=== PATIENT | male | born 1960 | race Caucasian/White ===

== ENCOUNTER 2017-09-02 09:42 | Emergency (ER) | payer SELFPAY ==
[2017-09-02 09:54] VITALS: BMI 24.9
--- NOTE | 2017-09-02 10:20 | DR.GENAD ---
HPI - PCP Primary Care Physician: Deneen Junior - HPI Comment HPI Comment: SYMTOMS ALMOST GONE PROJECT ENG WANTED EVALUTION FOR CHEST PAIN. - Complaint/Symptoms Chief Complaint Doctors Comments: CHEST PAIN, SORENESS. NOTED SATURDAY FOR 8 HRS. RESOLVE WITH MILD SORENESS. HAVE GENERALIZE WEAKNESS WITH WEIGHT LOSS FOR 2 MONTHS. Chief Complaint:: Pt c/o generalized weakness for 2 months. Has lost 20 lb in last 2 weeks. Saturday night around 11pm until Saturday morning around 8am started to feel like "a horse kicked me in my chest." Still c/o general soreness in chest Self Treatment fo Chief Complaint: [place] Naproxen with no relief - Nurses notes reviewed Nurses Notes Review: Yes - Source History Provided: Patient - Mode of Arrival Mode of Arrival: Ambulatory - Timing Onset of Chief Complaint: 08/31/17 Came on: Gradually - Duration Duration: Constant Duration: Days - Severity Severity: Moderate PMH - PMH Past Medical History: Yes Past Medical History: Anxiety, Depression Past Medical History Comment: Rheumatoid arthritis Past Surgical History: Yes Surgical History: Tonsillectomy - Family History History of Family Medical Conditions: Yes Family Medical History: Cancer, Coronary Artery Disease, Hypertension - Social History Does patient currently use any type of tobacco product: No Have you used tobacco products in the last 12 months: No Type of Tobacco Use: None Does any household member use tobacco: No Alcohol Use: None Do you use any recreational Drugs:: No Lives With: Alone Lives Where: Home - infectious screening In the last 2 months have you had wt loss of >10#?: YES Have you had fever, night sweats or hemotysis?: No Have you traveled outside the country in the last 6 months?: No Isolation: Standard ROS - Review of Systems Constitutional: Weakness, Fatigue. negative: Chills, Fever Eyes: No Symptoms Reported. negative: Eye Pain, Discharge ENTM: No Symptoms Reported. negative: Ear Pain, Nose Discharge, Nose Congestion , Throat Pain Respiratoy: Short of Breath. negative: Productive Cough, Non-Productive Cough, Wheezing, Hemoptysis Cardiovascular: Chest Pain Gastrointestinal/Abdominal: No Symptoms Reported Genitourinary: No Symptoms Reported Neurological: No Symptoms Reported Musculoskeletal: Muscle Pain Integumentary: No Symptoms Reported Hematologic/Lymphatic: No Symptoms Reported Endocrine: No Symptoms Reported All Other Systems: Reviewed and Negative PE - Vital Signs Vitals: Temperature 97.6 F Pulse Rate [Apical] 54 Pulse Rate 67 Respiratory Rate 16 Blood Pressure [Left Arm] 139/72 Blood Pressure 139/80 O2 Sat by Pulse Oximetry 95 - General Limitations: No Limitations General Appearance: Alert - Head Head Exam: Normal Inspection - Eyes Eye exam: Normal Appearance - ENT ENT Exam: Normal External Ear Exam External Ear Exam: Normal External Inspection TM/Canal Exam: Bilateral Normal Nose Exam: Normal Nose Exam Mouth Exam: Normal Inspection Throat Exam: Normal Inspection - Neck Neck Exam: Normal Inspection - Chest Chest Inspection: Symmetric Chest Wall Rise - Respiratory Respiratory Exam: Normal Lung Sounds Bilat Respiratory Exam: Bilateral Clear to Auscultation - Cardiovascular Cardiovascular Exam: Regular Rate, Normal Rhythm, Normal Heart Sounds - Abdominal Exam Abdominal Exam: Normal Bowel Sounds, Soft. negative: Tenderness - Extremities Extremities Exam: Normal Inspection - Back Back Exam: Normal Inspection - Neurologic Neurological Exam: Alert, Oriented X3 - Psychiatric Psychiatric Exam: Normal Affect, Normal Mood - Skin Skin Exam: Normal Color MDM - Additional Information Additional Information Obtained From: Family - Differential Diagnosis Differential Diagnosis: GENERALIZE PAIN, MYALGIA Course - Treatment Treatment: SEE ORDERS - Education/Counseling Education/Counseling: Patient, Family, Education Educated On: Diagnosis ROR - Labs Reviewed Result Diagrams: 09/02/17 10:40 09/02/17 10:40 Laboratory: WBC 9.8 X10^3/uL (3.6-10.0) 09/02/17 10:40 RBC 5.87 X10^6/uL (4.7-6.0) 09/02/17 10:40 Hgb 16.7 g/dL (13.5-18.0) 09/02/17 10:40 Hct 48.9 % (42.0-54.0) 09/02/17 10:40 MCV 83.4 fL (80.0-100.0) 09/02/17 10:40 MCH 28.4 pg (27.0-34.0) 09/02/17 10:40 MCHC 34.1 g/dL (33.0-35.0) 09/02/17 10:40 RDW 14.8 % (11.6-16.5) 09/02/17 10:40 Plt Count 187 X10^3/uL (150.0-450.0) 09/02/17 10:40 MPV 8.1 fL (7.4-11.0) 09/02/17 10:40 Neut % 66.9 % (42.0-75.0) 09/02/17 10:40 Lymph % 18.4 % (21.0-51.0) L 09/02/17 10:40 [place] % 10.5 % (0.0-13.0) 09/02/17 10:40 Eos % 3.4 % (0.9-2.9) H 09/02/17 10:40 Baso % 0.8 % (0.2-1.0) 09/02/17 10:40 Neut # 6.5 x10^3/uL (2.2-4.8) H 09/02/17 10:40 Lymph # 1.8 X10^3/uL (1.3-2.9) 09/02/17 10:40 [place] # 1.0 x10^3/uL (0.3-0.8) H 09/02/17 10:40 Eos # 0.3 x10^3/uL (0.0-0.2) H 09/02/17 10:40 Baso # 0.1 X10^3/uL (0.0-0.1) 09/02/17 10:40 Absolute Nucleated RBC 0.1 /100WBC 09/02/17 10:40 D-Dimer 134 ng/mL (0-400) 09/02/17 10:40 Sodium 138 mmol/L (136-145) 09/02/17 10:40 Corrected Sodium 138 mmol/L (136-145) 09/02/17 10:40 Potassium 4.0 mmol/L (3.5-5.1) 09/02/17 10:40 Chloride 102 mmol/L (98-107) 09/02/17 10:40 Carbon Dioxide 26.6 mmol/L (21-32) 09/02/17 10:40 BUN 13 mg/dL (7-18) 09/02/17 10:40 Creatinine 0.90 mg/dL (0.70-1.30) 09/02/17 10:40 Est GFR (MDRD) Af Amer > 60 (>60) 09/02/17 10:40 Est GFR (MDRD) Non-Af > 60 (>60) 09/02/17 10:40 Glucose 116 mg/dL (65-99) H 09/02/17 10:40 Calcium 9.1 mg/dL (8.5-10.1) 09/02/17 10:40 Corrected Calcium TNP 09/02/17 10:40 Total Bilirubin 0.60 mg/dL (0.2-1.0) 09/02/17 10:40 AST 19 Units/L (15-37) 09/02/17 10:40 ALT 16 Units/L (12-78) 09/02/17 10:40 Alkaline Phosphatase 71 Units/L (46-116) 09/02/17 10:40 Creatine Kinase 58 Units/L (39-308) 09/02/17 10:40 CK-MB (CK-2) < 1.0 ng/mL (0-4.0) 09/02/17 10:40 CK/CKMB % Calc 1.7 % (<4) 09/02/17 10:40 Troponin I < 0.02 ng/mL (0-1.5) 09/02/17 10:40 Total Protein 7.7 g/dL (6.4-8.2) 09/02/17 10:40 Albumin 4.2 g/dL (3.4-5.0) 09/02/17 10:40 Globulin 3.5 g/dL (2.5-4.5) 09/02/17 10:40 Albumin/Globulin Ratio 1.2 Ratio (1.1-2.1) 09/02/17 10:40 Amylase 17 Units/L (25-115) L 09/02/17 10:40 Lipase 43 Units/L (73-393) L 09/02/17 10:40 Specimen Type Random urine 09/02/17 10:59 Urine Color Yellow (YELLOW) 09/02/17 10:59 Urine Appearance Clear (CLEAR) 09/02/17 10:59 Urine pH 6.5 (5.0 - 8.0) 09/02/17 10:59 Ur Specific [place] 1.015 (1.000-1.030) 09/02/17 10:59 Urine Protein 1+ (NEGATIVE) 09/02/17 10:59 Urine Glucose (UA) Negative (NEGATIVE) 09/02/17 10:59 Urine Ketones 1+ (NEGATIVE) 09/02/17 10:59 Urine Occult Blood Negative (NEGATIVE) 09/02/17 10:59 Urine Nitrite Negative (NEGATIVE) 09/02/17 10:59 Urine Bilirubin Negative (NEGATIVE) 09/02/17 10:59 Urine Urobilinogen 1+ (NORMAL) 09/02/17 10:59 Ur Leukocyte Esterase 1+ (NEGATIVE) 09/02/17 10:59 Urine RBC None seen /HPF (NEGATIVE) 09/02/17 10:59 Urine WBC 5-10 /HPF (NEGATIVE) 09/02/17 10:59 Ur Squamous Epith Cells Negative /HPF (NEGATIVE) 09/02/17 10:59 Urine Bacteria Negative /HPF (NEGATIVE) 09/02/17 10:59 Urine Mucus Many /HPF (NEGATIVE) 09/02/17 10:59 Ur Culture Indicated? No/not indicated 09/02/17 10:59 H. pylori IgG Antibody Negative (NEGATIVE) 09/02/17 10:40 - XRAY XRAY Interpreted by: Radiologist XRAY Findings: REPORT DISCUSS WITH PATIENT - EKG Rhythm: NSR (EKG NOTED) - Diagnosis Discharge Problem: Chest pain Qualifiers: Chest pain type: precordial pain Qualified Code(s): R07.2 - Precordial pain - Discharge Plan Disposition: 01 HOME, SELF-CARE Condition: Stable Prescriptions: Aspirin EC [ASPIRIN EC 81 MG *] 81 mg PO DAILY #90 tab Ciprofloxacin HCl [CIPRO 500 MG TAB *] 500 mg PO Q12H #20 tab - Follow ups/Referrals Follow ups/Referrals: USHA JUNIOR [Primary Care Provider] - 09/03/17 - Instructions Instructions: Urinary Tract Infection, Adult, [id number], Chest Pain Observation Additional Instructions: RETURN TO ED IF WORSE.
[2017-09-02 10:46] LABS: BASOPHILS # (AUTO) 0.1 X10^3/uL (0.0-0.1); BASOPHILS % (AUTO) 0.8 % (0.2-1.0); EOSINOPHILS # (AUTO) 0.3 x10^3/uL (0.0-0.2); EOSINOPHILS % (AUTO) 3.4 % (0.9-2.9); HEMATOCRIT 48.9 % (42.0-54.0); HEMOGLOBIN 16.7 g/dL (13.5-18.0); LYMPHOCYTES # (AUTO) 1.8 X10^3/uL (1.3-2.9); LYMPHOCYTES % (AUTO) 18.4 % (21.0-51.0); MEAN CORPUSCULAR HEMOGLOBIN 28.4 pg (27.0-34.0); MEAN CORPUSCULAR HGB CONC 34.1 g/dL (33.0-35.0); MEAN CORPUSCULAR VOLUME 83.4 fL (80.0-100.0); MEAN PLATELET VOLUME 8.1 fL (7.4-11.0); MONOCYTES % (AUTO) 10.5 % (0.0-13.0); NEUTROPHILS # (AUTO) 6.5 x10^3/uL (2.2-4.8); NEUTROPHILS % (AUTO) 66.9 % (42.0-75.0); PLATELET COUNT 187 X10^3/uL (150.0-450.0); RED BLOOD COUNT 5.87 X10^6/uL (4.7-6.0); RED CELL DISTRIBUTION WIDTH 14.8 % (11.6-16.5); WHITE BLOOD COUNT 9.8 X10^3/uL (3.6-10.0)
--- NOTE | 2017-09-02 10:55 | RAD ---
History: Chest pain Study: Portable AP upright chest Comparison: None Findings: The lungs are clear and the heart and mediastinum are unremarkable. There is no edema or ef fusion or congestion demonstrated. Impression: No evidence for acute cardiopulmonary disease Reported By:
[2017-09-02 10:59] LABS: ALANINE AMINOTRANSFERASE 16 Units/L (12-78); ALBUMIN 4.2 g/dL (3.4-5.0); ALKALINE PHOSPHATASE 71 Units/L (46-116); AMYLASE 17 Units/L (25-115); ASPARTATE AMINO TRANSFERASE 19 Units/L (15-37); BLOOD UREA NITROGEN 13 mg/dL (7-18); CALCIUM 9.1 mg/dL (8.5-10.1); CARBON DIOXIDE 26.6 mmol/L (21-32); CHLORIDE 102 mmol/L (98-107); COR NA(FOR HYPERGLY) 138 mmol/L (136-145); LIPASE 43 Units/L (73-393); SODIUM 138 mmol/L (136-145); TOTAL PROTEIN 7.7 g/dL (6.4-8.2); eGFR BLACK RACES > 60 (>60); eGFR NON BLACK RACES > 60 (>60)
[2017-09-02 11:09] LABS: BILIRUBIN,URINE NEGATIVE (NEGATIVE); BLOOD/HEMOGLOBIN,URINE NEGATIVE (NEGATIVE); GLUCOSE, URINE NEGATIVE (NEGATIVE); KETONES,URINE 1+ (NEGATIVE); LEUKOCYTE ESTERASE ,URINE 1+ (NEGATIVE); NITRITES,URINE NEGATIVE (NEGATIVE); PH,URINE 6.5 (5.0 - 8.0); PROTEIN,URINE 1+ (NEGATIVE); UROBILINOGEN,URINE 1+ (NORMAL)
[2017-09-02 11:16] LABS: APPEARANCE,URINE CLEAR (CLEAR); BACTERIA,URINE NEGATIVE /HPF (NEGATIVE); COLOR,URINE YELLOW (YELLOW); RBC,URINE NONE SEEN /HPF (NEGATIVE); SQUAMOUS EPITHELIAL CELL,UR NEGATIVE /HPF (NEGATIVE)
[2017-09-02 11:17] LABS: MUCUS,URINE MANY /HPF (NEGATIVE)
[2017-09-02 12:17] LABS: CKMB % 1.7 % (<4); CREATINE KINASE 58 Units/L (39-308); CREATINE KINASE MB < 1.0 ng/mL (0-4.0); TROPONIN I < 0.02 ng/mL (0-1.5)
[2017-09-02 12:41] VITALS: BP 139/72
== END 2017-09-02 12:40 | disposition home or self-care (01) ==
LOC: ER 10:03
DX: R07.2 Precordial pain (principal)
CPT/HCPCS: 36415; 71045; 80053; 81001; 82150; 82550; 82553; 83690; 84484; 85025; 85378; 86677; 93005; 93010; 99283; 99285